=== PATIENT | male | born 1980 | race Caucasian/White ===

== ENCOUNTER → 2021-02-13 08:09 | Outpatient (CLI) | payer OTHER, SELFPAY ==
[2021-02-13] MEDS: COVID-19 VACC #1, MRNA(MOD) 100 MCG/0.5 ML VIAL IM (08:14)
== END ==
PROVIDERS: Visit Provider Internal Medicine
DX: Z23 Encounter for immunization (principal)
CPT/HCPCS: 0011A; 91301

== ENCOUNTER → 2021-03-13 08:09 | Outpatient (CLI) | payer OTHER, SELFPAY ==
[2021-03-13] MEDS: COVID-19 VACC #2, MRNA(MOD) 100 MCG/0.5 ML VIAL IM (08:14)
== END ==
PROVIDERS: Visit Provider Internal Medicine
DX: Z23 Encounter for immunization (principal)
CPT/HCPCS: 0012A; 91301

== ENCOUNTER → 2021-09-18 13:39 | Outpatient (CLI) | payer OTHER, SELFPAY ==
[2021-09-18] MEDS: COVID-19 VACC #3, MRNA(MOD) 50 MCG/0.25 ML VIAL IM (13:47)
== END ==
PROVIDERS: Visit Provider Internal Medicine
DX: Z23 Encounter for immunization (principal)
CPT/HCPCS: 0013A; 91301

== ENCOUNTER → 2023-04-29 08:42 | Outpatient (CLI) | payer OTHER, SELFPAY ==
--- NOTE | 2023-04-29 | DI.RAD.S_ITS ---
PROCEDURE: [place] HIP INJECTION MR/CT RT INDICATIONS: RIGHT HIP PAIN TECHNIQUE: The indications, alternatives, benefits, risks, and complications of the procedure were explained to the patient. Written informed consent was obtained and placed in the chart. The hip was examined fluoroscopically with the legs fixed in slight internal rotation, and a site for needle placement chosen for entry into the hip joint from an anterior approach. Care was taken to locate the common femoral artery and vein beforehand. The skin was prepped and draped in a sterile fashion, and 1% Lidocaine infiltrated from skin down to joint capsule. A spinal needle was inserted into the joint, and a small amount of iodinated contrast media injected to confirm intra-articular placement of the needle tip. This was followed by approximately 10 mL dilute solution of a gadolinium containing MR contrast agent. The needle was removed and a dressing was applied. The patient was given postprocedural instructions and sent to the MR suite for imaging. COMPARISON: [facility], , MR HIP RT W CON, 04/29/2023, 9:30. FINDINGS: A single fluoroscopic spot image demonstrates intra-articular location of injected iodinated contrast. IMPRESSION: Successful fluoroscopically guided administration of dilute Gadolinium solution into the hip joint for MR arthrogram. Dictated by: Mally Howard M.D. on 04/29/2023 at 13:18 Approved by: Mally Howard M.D. on 04/29/2023 at 13:19
--- NOTE | 2023-04-29 | DI.MRI.S_ITS ---
PROCEDURE: MR HIP RT W CON INDICATIONS: RIGHT HIP PAIN TECHNIQUE: After the administration of 10 mL of dilute intra-articular Gadolinium contrast, coronal STIR of the bony pelvis; coronal and oblique axial T1 spin echo with fat saturation, axial T2 fast spin echo with fat saturation, sagittal T1 spin echo with and without fat saturation of the involved hip. COMPARISON: [facility], , [place] INJECTION MR/CT RT, 04/29/2023, 8:59. FINDINGS: Image quality: Excellent. Bones and joints: Bone marrow of the pelvic ring and proximal femurs show normal signal throughout. No intraosseous lesions or fractures. No avascular necrosis of the femoral heads. Disc desiccation and facet hypertrophy are seen in the lower lumbar spine Tendons and ligaments: The gluteus medius and minimus tendons appear intact, without associated muscle atrophy. The proximal iliotibial band appears intact. The iliopsoas tendon appears intact, without adjacent bursal fluid collections. The origin of the hamstring tendon is intact at the ischial tuberosity. The direct and indirect heads of the rectus femoris muscle origin appear intact. Labrum and cartilage: There is labral degeneration and partial ossification without uptake of intra-articular contrast material. Mild partial-thickness cartilage irregularity is seen at the posterosuperior aspect of the hip. There is normal morphology of the femoral head and the acetabulum. Soft tissues: Visualized muscles demonstrate normal bulk and internal signal. Quadratus femoris muscle demonstrates no internal edema to suggest ischiofemoral impingement. The proximal sciatic neurovascular bundle appears intact. The included portions of the pelvis demonstrate no acute abnormality. IMPRESSION: 1. 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 2. 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 No focal labral tear is seen. 3. Mild degenerative changes in the lower lumbar spine. Approved by: Luis Simms M.D. on 04/29/2023 at 11:34
== END ==
PROVIDERS: PCP Internal Medicine; Referring Provider Orthopaedic Surgery; Visit Provider Orthopaedic Surgery
DX: M25.551 Pain in right hip (principal); M94.251 Chondromalacia, right hip; M47.816 Spondylosis without myelopathy or radiculopathy, lumbar region
CPT/HCPCS: 27093; 73722; 77002